=== PATIENT | female | born 1955 | race American Indian/Alaskan Native ===

== ENCOUNTER 2021-08-24 08:41 | Emergency (ER) | payer MEDICAID ==
[2021-08-24] MEDS ORDERED: IBUPROFEN 800 MG TAB PO ONE (09:16)
--- NOTE | 2021-08-24 09:26 | Emergency Department Report ---
ED Lower Extremity HPI - General Chief Complaint: Extremity Injury, Lower Stated Complaint: HIP PAIN Time Seen by Provider: 08/24/21 09:12 Source: patient Mode of arrival: Ambulatory Limitations: No Limitations - History of Present Illness Initial Comments: Patient presents secondary to left hip pain. For the last 3 months, she has been having pain in the left hip. This is an aching pain. It radiates from the lateral aspect of the left hip into the groin area. There was no trauma associated with this. 2 days ago, the pain acutely worsened. She decided to come here for evaluation. Again, there is no trauma. She states that the pain is sharp and stabbing as well as aching. It is worse with palpation and movement. Patient has been using a cane to walk due to the pain. There is no other joint pain. This does not radiate or migrate. She has no fevers or chills. There is no back pain associated with this. She denies saddle anesthesia. Patient states that she is just here because she cannot get comfortable due to the left lateral hip pain. - Related Data Previous Rx's Medication Instructions Recorded Last Taken Type Ibuprofen [Motrin] 600 mg PO Q8H PRN #20 tablet 08/24/21 Unknown Rx Allergies Allergy/AdvReac Type Severity Reaction Status Date / Time No Known Allergies Allergy Verified 08/24/21 10:14 ED Review of Systems ROS: Stated complaint: HIP PAIN Other details as noted in HPI Comment: All other systems reviewed and negative Constitutional: denies: fever Eyes: denies: vision change ENT: denies: throat pain Respiratory: denies: cough Cardiovascular: denies: chest pain Endocrine: denies: unexplained weight loss Gastrointestinal: denies: abdominal pain Genitourinary: denies: dysuria Musculoskeletal: as per HPI Skin: denies: rash Neurological: denies: headache Hematological/Lymphatic: denies: easy bruising ED Past Medical Hx - Past Medical History Previous Medical History?: No - Family History Family history: no significant - Medications Home Medications: Home Medications Medication Instructions Recorded Confirmed Last Taken Type Ibuprofen [Motrin] 600 mg PO Q8H PRN #20 tablet 08/24/21 Unknown Rx ED Physical Exam - General Limitations: No Limitations, Other (Pulse ox noted and normal) General appearance: alert, in no apparent distress - Head Head exam: Present: atraumatic, normocephalic, normal inspection - Eye Eye exam: Present: normal appearance, EOMI. Absent: scleral icterus - ENT ENT exam: Present: normal exam, normal orophraynx, normal external ear exam - Neck Neck exam: Present: normal inspection. Absent: meningismus - Respiratory Respiratory exam: Present: normal lung sounds bilaterally. Absent: respiratory distress - Cardiovascular Cardiovascular Exam: Present: regular rate, normal rhythm - GI/Abdominal GI/Abdominal exam: Present: soft. Absent: tenderness, pulsatile mass - Extremities Exam Extremities exam: Present: normal capillary refill, other (There is tenderness with palpation of the left hip laterally. There is pain with range of motion. There is no deformity noted. There is no tenderness of the sacroiliac area). Absent: calf tenderness - Back Exam Back exam: Absent: CVA tenderness (R), CVA tenderness (L) - Neurological Exam Neurological exam: Present: alert, oriented X3, CN II-XII intact, normal gait, reflexes normal. Absent: motor sensory deficit - Psychiatric Psychiatric exam: Present: normal affect, normal mood - Skin Skin exam: Present: warm, dry ED Course Vital Signs 08/24/21 08/24/21 08:46 10:11 Temperature 97.8 F 97.9 F Pulse Rate 58 L 81 Respiratory 18 12 Rate Blood Pressure 121/76 Blood Pressure 144/66 122/74 [Right] O2 Sat by Pulse 100 100 Oximetry - Reevaluation(s) Reevaluation #1: 08/24/21 09:25 X-rays were ordered. Old records reviewed. Reevaluation #2: 08/24/21 10:22 Patient was discharged ED Lower Extremity MDM - Radiology Data Radiology results: report reviewed - Medical Decision Making Patient presented with nontraumatic left hip pain. There was no evidence of pathologic fracture. She had no dislocation. There is no other lytic lesion. She has no fevers or chills. I do not believe this represents any type of septic arthritis. This is been ongoing. Patient has no sciatica symptoms. There is no neurologic deficit. I do believe outpatient management would be most appropriate. She can consider orthopedic consultation. Critical Care Time: No Critical care attestation.: If time is entered above; I have spent that time in minutes in the direct care of this critically ill patient, excluding procedure time. ED Disposition Clinical Impression: Arthralgia of left hip Disposition: HOME / SELF CARE / HOMELESS Is pt being admited?: No Condition: Stable Instructions: Hip Pain, Musculoskeletal Pain, Pain Without a Known Cause Additional Instructions: Ice and elevate. Return for problems. See your regular doctor for recheck and further management. Follow-up with orthopedics as referred by her family doctor. If you do not have a family doctor, see the referral physician. Prescriptions: Ibuprofen [Motrin] 600 mg PO Q8H PRN #20 tablet PRN Reason: Pain Referrals: PRIMARY CAREMD [Primary Care Provider] - 3-5 Days JOSH BEJARANO MD [Staff Physician] - 3-5 Days
--- NOTE | 2021-08-24 09:54 | XRay Report ---
XR hip 2-3V LT INDICATION / CLINICAL INFORMATION: hip pain. COMPARISON: None available. FINDINGS: BONES/JOINT(S): No acute fracture or subluxation. 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 No focal bone lesi ons. SOFT TISSUES: No significant abnormality. ADDITIONAL FINDINGS: None. Signer Name: Joseph Brothers MD Signed: 08/24/2021 9:50 AM Workstation Name: [id number]
[2021-08-24 10:30] VITALS: BP 121/76
== END 2021-08-24 10:32 | disposition home or self-care (01) ==
LOC: ED 08:41
DX: M19.90 Unspecified osteoarthritis, unspecified site (principal); M25.552 Pain in left hip
CPT/HCPCS: 99283

== ENCOUNTER 2021-10-15 11:24 | Emergency (ER) | payer MEDICAID ==
--- NOTE | 2021-10-15 18:51 | Emergency Department Report ---
ED General Adult HPI - General Chief complaint: Extremity Problem,Nontraumatic Stated complaint: IN PAIN PUI?: No Time Seen by Provider: 10/15/21 18:43 Source: patient Mode of arrival: Ambulatory Limitations: No Limitations - History of Present Illness Initial comments: 66-year-old -Japanese female presents to the emergency room complaining of left hip pain. She also complains of right hand pain and numbness has been going on for several weeks. 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 She comes in asking for a work excuse for a few days. Patient was seen for the same complaint in July but never followed up with the provider. Onset/Timin -: month(s) Location: left, lower extremity Severity scale (0 -10): 6 Quality: aching Consistency: constant Improves with: none Worsens with: movement Associated Symptoms: denies other symptoms Treatments Prior to Arrival: none - Related Data Previous Rx's Medication Instructions Recorded Last Taken Type Ibuprofen [Motrin] 600 mg PO Q8H PRN #20 tablet 08/24/21 Unknown Rx Ketorolac [Toradol] 10 mg PO Q6H PRN #20 10/15/21 Unknown Rx Allergies Allergy/AdvReac Type Severity Reaction Status Date / Time No Known Allergies Allergy Verified 08/24/21 10:14 ED Review of Systems ROS: Stated complaint: IN PAIN Other details as noted in HPI Comment: All other systems reviewed and negative ED Past Medical Hx - Social History Smoking Status: Never Smoker Substance Use Type: None - Medications Home Medications: Home Medications Medication Instructions Recorded Confirmed Last Taken Type Ibuprofen [Motrin] 600 mg PO Q8H PRN #20 tablet 08/24/21 Unknown Rx Ketorolac [Toradol] 10 mg PO Q6H PRN #20 10/15/21 Unknown Rx ED Physical Exam - General Limitations: No Limitations General appearance: alert, in no apparent distress - Head Head exam: Present: atraumatic, normocephalic - Eye Eye exam: Present: normal appearance - ENT ENT exam: Present: normal external ear exam - Neck Neck exam: Present: normal inspection, full ROM - Respiratory Respiratory exam: Absent: respiratory distress, accessory muscle use - Cardiovascular Cardiovascular Exam: Present: regular rate - Expanded Lower Extremity Exam Left Hip exam: Present: full ROM, tenderness. Absent: swelling Upper Leg exam: Present: full ROM, tenderness Knee exam: Present: normal inspection, full ROM Lower Leg exam: Present: normal inspection, full ROM Ankle exam: Present: normal inspection, full ROM Foot/Toe exam: Present: normal inspection, full ROM Neuro vascular tendon exam: Present: no vascular compromise Gait: Positive: observed and limited by pain (Walking with a cane) - Back Exam Back exam: Present: full ROM ED Course Vital Signs 10/15/21 13:29 Temperature 98.9 F Pulse Rate 61 Respiratory 18 Rate Blood Pressure 130/71 O2 Sat by Pulse 98 Oximetry ED Medical Decision Making - Medical Decision Making 66-year-old -Japanese female presents to the emergency room complaining of left hip pain. She also complains of right hand pain and numbness has been going on for several weeks. 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 She comes in asking for a work excuse for a few days. Patient was seen for the same complaint in July but never followed up with the provider. Patient was discharged on Toradol 10 mg every 6 hours as needed and a referral to orthopedics provider and a primary care provider. Critical care attestation.: If time is entered above; I have spent that time in minutes in the direct care of this critically ill patient, excluding procedure time. ED Disposition Clinical Impression: Chronic left hip pain Disposition: HOME / SELF CARE / HOMELESS Is pt being admited?: No Does the pt Need Aspirin: No Condition: Stable Instructions: Pain Without a Known Cause, Joint Pain, [id number] Additional Instructions: Recommend taking pain medication. Follow-up with an orthopedic provider. Also recommend following up with a primary care provider. I have listed the information below for your convenience Prescriptions: Ketorolac [Toradol] 10 mg PO Q6H PRN #20 PRN Reason: Pain Referrals: PRIMARY MD ARIE [Primary Care Provider] - 3-5 Days ASM RODRIGUEZ MD [Staff Physician] - 3-5 Days JOSH BEJARANO MD [Staff Physician] - 3-5 Days Forms: Work/School Release Form(ED) Time of Disposition: 18:47
[2021-10-15 19:03] VITALS: BP 155/73
== END 2021-10-15 19:04 | disposition home or self-care (01) ==
LOC: ED 11:24
DX: M25.552 Pain in left hip (principal); G89.29 Other chronic pain; Z79.899 Other long term (current) drug therapy
CPT/HCPCS: 99282

== ENCOUNTER 2021-11-05 01:52 | Emergency (ER) | payer MEDICAID ==
[2021-11-05] MEDS ORDERED: SODIUM CHLORIDE 0.9% 1000 ML 1,000 ML IV ONE (02:14)
[2021-11-05] MEDS ORDERED: KETOROLAC 30 MG/1 ML INJ IV ONE (02:15)
--- NOTE | 2021-11-05 02:18 | Emergency Department Report ---
ED General Adult HPI - General Chief complaint: Hyperglycemia Stated complaint: HIGH BLOOD SUGAR Time Seen by Provider: 11/05/21 02:05 Source: EMS Mode of arrival: Stretcher Limitations: No Limitations - History of Present Illness Initial comments: Patient is 66 years old female with history of diabetes on Lantus and Metformin. Patient brought to the emergency room via EMS from [facility] for evaluation of high blood sugar. EMS stated that staff at [facility] found that patient did have a blood glucose of 550. EMS reported the ir Accu-Chek showed 351. Patient denied any complaint except for left hip pain that is been going on for a while with no injury. Patient admitted to [facility] for alcohol and cocaine rehab. - Related Data Previous Rx's Medication Instructions Recorded Last Taken Type Ibuprofen [Motrin] 600 mg PO Q8H PRN #20 tablet 08/24/21 Unknown Rx Ketorolac [Toradol] 10 mg PO Q6H PRN #20 10/15/21 Unknown Rx Allergies Allergy/AdvReac Type Severity Reaction Status Date / Time No Known Allergies Allergy Verified 08/24/21 10:14 ED Review of Systems ROS: Stated complaint: HIGH BLOOD SUGAR Other details as noted in HPI Comment: All other systems reviewed and negative Constitutional: denies: chills, fever Respiratory: denies: cough, shortness of breath, SOB with exertion Cardiovascular: denies: chest pain, palpitations, dyspnea on exertion Gastrointestinal: denies: abdominal pain, nausea, vomiting Musculoskeletal: denies: back pain Neurological: denies: headache, weakness, numbness, paresthesias, confusion Psychiatric: denies: suicidal thoughts ED Past Medical Hx - Past Medical History Hx Diabetes: Yes - Surgical History Past Surgical History?: Yes - Social History Smoking Status: Never Smoker Substance Use Type: None - Medications Home Medications: Home Medications Medication Instructions Recorded Confirmed Last Taken Type Ibuprofen [Motrin] 600 mg PO Q8H PRN #20 tablet 08/24/21 Unknown Rx Ketorolac [Toradol] 10 mg PO Q6H PRN #20 10/15/21 Unknown Rx ED Physical Exam - General Limitations: No Limitations General appearance: alert, in no apparent distress - Head Head exam: Present: atraumatic, normocephalic, normal inspection - Eye Eye exam: Present: normal appearance - ENT ENT exam: Present: normal exam, normal orophraynx, mucous membranes moist - Neck Neck exam: Present: normal inspection, full ROM. Absent: tenderness, meningismus - Respiratory Respiratory exam: Present: normal lung sounds bilaterally - Cardiovascular Cardiovascular Exam: Present: regular rate, normal rhythm, normal heart sounds - GI/Abdominal GI/Abdominal exam: Present: soft, normal bowel sounds. Absent: distended, tenderness, guarding, rebound, rigid, organomegaly, mass, bruit, pulsatile mass, hernia - Extremities Exam Extremities exam: Present: normal inspection, full ROM, normal capillary refill. Absent: tenderness - Back Exam Back exam: Present: normal inspection, full ROM. Absent: CVA tenderness (R), CVA tenderness (L) - Neurological Exam Neurological exam: Present: alert, oriented X3, CN II-XII intact, normal gait, reflexes normal. Absent: motor sensory deficit - Psychiatric Psychiatric exam: Absent: homicidal ideation, suicidal ideation - Skin Skin exam: Present: warm, intact, normal color ED Course Vital Signs 11/05/21 11/05/21 02:45 04:50 Temperature 98.4 F Pulse Rate 85 Respiratory 20 20 Rate Blood Pressure 133/53 [Left] O2 Sat by Pulse 95 Oximetry ED Medical Decision Making - Lab Data Result diagrams: 11/05/21 02:23 11/05/21 02:23 - Medical Decision Making Patient is 66 years old female with history of diabetes on Lantus and Metformin. Patient brought to the emergency room via EMS from [facility] for evaluation of high blood sugar. EMS stated that staff at [facility] found that patient did have a blood glucose of 550. EMS reported their Accu- Chek showed 351. Patient denied any complaint except for left hip pain that is been going on for a while with no injury. Patient admitted to [facility] for alcohol and cocaine rehab. Patient remained stable in the ER is a stable vital sign. Blood glucose on repeated occasions consistently less than 300. Patient received normal saline. She also received Toradol 30 mg IV for her left hip pain. Patient will be discharged back to [facility] and advised to follow-up with primary care physician in the next 2 to 3 days and to return to the ER if she develop any new symptoms. Critical care attestation.: If time is entered above; I have spent that time in minutes in the direct care of this critically ill patient, excluding procedure time. ED Disposition Clinical Impression: Acute hyperglycemia, Left hip pain Disposition: 01 HOME / SELF CARE / HOMELESS Is pt being admited?: No Condition: Stable Instructions: Hip Pain, Hyperglycemia, [id number] Referrals: PRIMARY CARE, [Primary Care Provider] - 3-5 Days
[2021-11-05 03:01] LABS: BUN/Creatinine Ratio 20; Blood Urea Nitrogen 18 mg/dL (7-17); Calcium 9.5 mg/dL (8.4-10.2); Hemolysis Index 18
[2021-11-05 04:28] LABS: Basophils # (Auto) 0.1 K/mm3 (0.0-0.1); Basophils % (Auto) 0.9 % (0.0-1.8); Eosinophils # (Auto) 0.2 K/mm3 (0.0-0.4); Eosinophils % (Auto) 2.9 % (0.0-4.3); Hematocrit 44.4 % (30.3-42.9); Hemoglobin 14.3 gm/dl (10.1-14.3); Lymphocytes # (Auto) 1.8 K/mm3 (1.2-5.4); Lymphocytes % (Auto) 32.4 % (13.4-35.0); Mean Corpuscular HGB Conc 32 % (30-34); Mean Corpuscular Volume 79 fl (79-97); Monocytes # (Auto) 0.4 K/mm3 (0.0-0.8); Monocytes % (Auto) 6.6 % (0.0-7.3); Platelet Count 299 K/mm3 (140-440); Red Blood Count 5.61 M/mm3 (3.65-5.03); Red Cell Distribution Width 18.3 % (13.2-15.2)
[2021-11-05 08:13] VITALS: BP 135/60
== END 2021-11-05 09:59 ==
LOC: ED 01:52
DX: E11.65 Type 2 diabetes mellitus with hyperglycemia (principal); M25.552 Pain in left hip; Z79.899 Other long term (current) drug therapy
CPT/HCPCS: 36415; 80048; 82962; 85025; 96361; 96374; 99284; J1885; J7030; 99283; Q0162